=== PATIENT | female | born 1995 | race Caucasian/White ===

== ENCOUNTER 2021-09-21 08:46 | Day surgery (SDC) | payer MEDICAID ==
[~2021-09-21] VITALS: Ht 160 cm; Wt 164.3 kg
[2021-09-21 09:12] VITALS: BP 130/77; PULSE 78; TEMP 98
[2021-09-21] MEDS ORDERED: XANAX 0.5MG0.5 MG PO (09:12)
[2021-09-21 10:20] VITALS: BP 126/83; PULSE 88; TEMP 98
[2021-09-21 10:30] VITALS: BP 116/67; PULSE 76
[2021-09-21 10:45] VITALS: BP 121/75; PULSE 70
--- NOTE | 2021-09-21 11:05 | NUR ---
Pt returned via cart to [facility] at 1020. A&O. Ambulated to recliner in bay. VSS-see flowsheet. Pt tolerated oral intake. Dr Prajapati in to visit post procedure. IV removed, pressure dressing applied. Dc teaching completed, pt verbalized understanding. Pt taken via wheelchair to private vehicle for dc home with sister driving.
== END 2021-09-21 11:05 | disposition home or self-care (01) ==
LOC: SDCO 08:46
DX: K57.30 Diverticulosis of large intestine without perforation or abscess without bleeding (principal); K57.92 Diverticulitis of intestine, part unspecified, without perforation or abscess without bleeding; K44.9 Diaphragmatic hernia without obstruction or gangrene; K29.70 Gastritis, unspecified, without bleeding; E66.01 Morbid (severe) obesity due to excess calories; A04.72 Enterocolitis due to Clostridium difficile, not specified as recurrent; K66.0 Peritoneal adhesions (postprocedural) (postinfection); K65.1 Peritoneal abscess; R93.5 Abnormal findings on diagnostic imaging of other abdominal regions, including retroperitoneum; Z86.16 Personal history of COVID-19; Z87.891 Personal history of nicotine dependence
CPT/HCPCS: J2704; J7120